=== PATIENT | male | born 1995 | race Hispanic/Latino ===

== ENCOUNTER 2023-11-24 16:18 | Emergency (ER) | payer OTHER ==
[2023-11-24 17:14] LABS: SARS-CoV-2 Antigen CONTROL BLUE LINE VIS/BG OK; SARS-CoV-2 Antigen Rapid Res Negative (Negative)
[2023-11-24] MEDS ORDERED: ACETAMINOPHEN 500 MG TAB ONE (17:26)
[2023-11-24] MEDS ORDERED: BENZONATATE 100 MG CAP PO ONE (17:27)
--- NOTE | 2023-11-24 17:58 | EDPHYS ---
Physician Documentation [facility] Name: Joel Yoo Age: 28 yrs Sex: Male : 1995 Arrival Date: 11/24/2023 Time: 16:18 Bed 11 Private MD: ED Physician Kobi Chung HPI: 11/23 17:15 This 28 yrs old Male presents to ER via Ambulatory with complaints of Sore cp Throat, Cold Symptoms. 17:15 The patient presents with sore throat. The patient describes throat pain as constant, cp scratchy. Onset: The symptoms/episode began/occurred yesterday. Associated signs and symptoms: Pertinent positives: cough. 17:15 Severity of symptoms: in the emergency department the symptoms are unchanged, despite cp home interventions. Historical: - Allergies: 16:35 No Known Allergies; ll1 - Home Meds: 16:35 None [Active]; ll1 - PMHx: 16:35 None; ll1 - PSHx: 16:35 None; ll1 - Immunization history:: Adult Immunizations up to date. - Infectious Disease History:: Denies. - Social history:: Smoking status: Reported history of juuling and/or vaping. Patient denies any tobacco usage or history of. ROS: 17:20 Eyes: Negative for injury, pain, redness, and discharge, cp 17:20 Constitutional: Positive for chills, Negative for fever, 17:20 ENT: Positive for sore throat, nasal congestion, Negative for drainage from ear(s), ear pain, difficulty swallowing, difficulty handling secretions, 17:20 Cardiovascular: Negative for chest pain, palpitations, 17:20 Respiratory: Positive for cough, "sounds productive", 17:20 Abdomen/GI: Negative for vomiting, diarrhea, constipation, 17:20 Neuro: Positive for headache, 17:20 All other systems are negative, Exam: 17:25 Head/Face: Normocephalic, atraumatic. cp 17:25 Constitutional: The patient appears in no acute distress, alert, awake, non-toxic, well developed, well nourished, obese, 17:25 Eyes: Periorbital structures: appear normal, Conjunctiva: normal, no exudate, no cp injection, Sclera: no appreciated abnormality, Lids and lashes: appear normal, bilaterally, 17:25 ENT: External ear(s): are unremarkable, Ear canal(s): are normal, clear, TM's: dullness, bilaterally, Nose: is normal, Mouth: Lips: moist, Oral mucosa: moist, Posterior pharynx: Airway: no evidence of obstruction, patent, Tonsils: mild erythema, no exudates, erythema, that is mild, Voice: is normal, 17:25 Neck: Lymph nodes: no appreciated lymphadenopathy, 17:25 Chest/axilla: Inspection: normal, 17:25 Cardiovascular: Rate: normal, Rhythm: regular, 17:25 Respiratory: the patient does not display signs of respiratory distress, Respirations: normal, no use of accessory muscles, no retractions, labored breathing, is not present, Breath sounds: rhonchi, are not appreciated, stridor, is not appreciated, + upper airway congestion. 17:25 Abdomen/GI: Exam negative for discomfort, distension, guarding, Inspection: obese 17:25 Neuro: Orientation: to person, place \\T\\ time. Mentation: is normal, Motor: moves all fours, strength is normal, Vital Signs: 16:31 BP 120 / 82; Pulse 92; Resp 18; Temp 97.5; Pulse Ox 97% ; Weight 128.37 kg; Height 5 ll1 ft. 6 in. ; Pain 8/10; 16:31 Body Mass Index 45.68 (128.37 kg, 167.64 cm) ll1 16:31 Pain Scale: Adult ll1 MDM: 16:31 Medical Screening Exam initiated cp 17:56 Data reviewed: vital signs, nurses notes, lab test result(s), and as a result, I will cp discharge patient. 17:56 Differential diagnosis: group A strep tonsillitis, pharyngitis, tonsillitis, upper cp respiratory infection, uvulitis. I considered the following discharge prescriptions or medication management in the emergency department Medications were administered in the Emergency Department. See MAR. Counseling: I had a detailed discussion with the patient and/or guardian regarding the historical points, exam findings, and any diagnostic results supporting the discharge/admit diagnosis, lab results, to return to the emergency department if symptoms worsen or persist or if there are any questions or concerns that arise at home. 11/23 16:39 Order name: Strep cp 11/23 16:39 Order name: Influenza Screen (a \\T\\ B); Complete Time: 17:41 cp 11/23 16:39 Order name: SARS RAPID; Complete Time: 17:41 cp 11/23 17:18 Order name: Throat Culture EDMS Administered Medications: 17:30 Drug: Tessalon Perle PO 200 mg PO once Route: PO; cm10 18:10 Follow up: Response: No adverse reaction cm10 17:30 Drug: Acetaminophen PO 1000 mg PO once Route: PO; cm10 18:10 Follow up: Response: No adverse reaction cm10 Disposition Summary: 11/24/23 17:57 Discharge Ordered Notes: Location: Home cp Problem: new cp Symptoms: have improved cp Condition: Stable cp Diagnosis - Cough cp - Acute pharyngitis, unspecified cp Followup: cp - With: Private Physician - When: 2 - 3 days - Reason: Worsening of condition Discharge Instructions: - Discharge Summary Sheet cp - Pharyngitis cp - Sore Throat cp - Cool Mist Vaporizer cp - Cough, Adult cp Forms: - Medication Reconciliation Form cp - Antibiotic Education cp - Prescription Opioid Use cp - Patient Portal Instructions cp - Leadership Thank You Letter cp - Work release form cm10 Prescriptions: - Bromfed DM 2-30-10 mg/5 mL Oral syrup - administer 10 milliliter ORAL route every 4 to 6 hours as needed for cold cp symptoms; 240 milliliter; Refills: 0, Product Selection Permitted - Ibuprofen 800 mg Oral Tablet - take 1 tablet ORAL route every 8 hours As needed take with food; 30 tablet; cp Refills: 0, Product Selection Permitted Signatures: Dispatcher [employer] EDNC Kobi Woodruff PA PA cp Lewis, Lynsay, RN RN ll1 Sita Kessler RN RN cm10 Corrections: (The following items were deleted from the chart) 16:39 16:39 Group A Streptococcus Rapid Sc+BA.LAB.BRZ ordered. EDMS EDMS 16:39 16:39 Influenza Screen (A \\T\\ B)+BA.LAB.BRZ ordered. EDNC EDMS 16:39 16:39 SARS-COV-2 Antigen Rapid+I.LAB.BRZ ordered. EDNC EDMS 11/24 16:19 11/23 17:15 Onset: The symptoms/episode began/occurred 2 day(s) ago, cp cp 11/24 16:51 16:46 Constitutional: Positive for chills, Negative for fever, cp cp 16:51 16:46 Respiratory: Positive for cough, "sounds productive", cp cp 16:51 16:46 Cardiovascular: Negative for chest pain, palpitations, cp cp 16:51 16:46 Abdomen/GI: Negative for vomiting, diarrhea, constipation, cp cp 16:51 16:46 ENT: Positive for sore throat, nasal congestion, Negative for drainage from cp ear(s), ear pain, difficulty swallowing, difficulty handling secretions, cp 16: 16:46 Eyes: Negative for injury, pain, redness, and discharge, cp cp 16:51 16:46 Neuro: Positive for headache, cp cp 16:51 16:46 All other systems are negative, cp cp
--- NOTE | 2023-11-24 17:58 | ER ---
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 Coronavirus screen: Client denies travel out of the [place] in the last 14 days. congestion, cough unrelated to allergies, fatigue, sore throat, Client presents with at least one sign or symptom that may indicate coronavirus-19. Standard/surgical mask placed on the client. Ebola Screen: Patient denies travel to an Ebola-affected area in the 21 days before illness onset. Initial Sepsis Screen: Does the patient meet any 2 criteria? No. Patient's initial sepsis screen is negative. Does the patient have a suspected source of infection? No. Patient's initial sepsis screen is negative. Risk Assessment: Do you want to hurt yourself or someone else? Patient reports no desire to harm self or others. Onset of symptoms was November 23, 2023. 16:31 Method Of Arrival: Ambulatory ll1 16:31 Acuity: JUANITA 4 ll1 Triage Assessment: 16:38 General: Appears uncomfortable, Behavior is calm, cooperative, appropriate for age. ll1 Pain: Complains of pain in head Pain currently is 7 out of 10 on a pain scale. Quality of pain is described as aching. EENT: Reports nasal congestion pain when swallowing. Neuro: Reports headache weakness. Respiratory: Reports cough that is. Historical: - Allergies: 16:35 No Known Allergies; ll1 - Home Meds: 16:35 None [Active]; ll1 - PMHx: 16:35 None; ll1 - PSHx: 16:35 None; ll1 - Immunization history:: Adult Immunizations up to date. - Infectious Disease History:: Denies. - Social history:: Smoking status: Reported history of juuling and/or vaping. Patient denies any tobacco usage or history of. Screenin:54 [facility] ED Fall Risk Assessment (Adult) History of falling in the last 3 months, cm10 including since admission No falls in past 3 months (0 pts) Confusion or Disorientation No (0 pts) Intoxicated or Sedated No (0 pts) Impaired Gait No (0 pts) Mobility Assist Device Used No (0 pt) Altered Elimination No (0 pt) Score/Fall Risk Level 0 - 2 = Low Risk Oriented to surroundings, Maintained a safe environment, Hourly rounding (assess needs \T\ fall precautionary measures) done. Abuse screen: Denies threats or abuse. Denies injuries from another. Nutritional screening: No deficits noted. Tuberculosis screening: No symptoms or risk factors identified. Assessment: 16:54 General: Appears in no apparent distress. comfortable, Behavior is calm, cooperative. mb9 Neuro: No deficits noted. Level of Consciousness is awake, alert, obeys commands, Oriented to person, place, time, situation, Appropriate for age. Respiratory: Airway is patent Respiratory effort is even, unlabored, Respiratory pattern is regular, symmetrical, 18:11 EENT: Throat is reddened. cm10 Vital Signs: 16:31 BP 120 / 82; Pulse 92; Resp 18; Temp 97.5; Pulse Ox 97% ; Weight 128.37 kg; Height 5 ll1 ft. 6 in. ; Pain 8/10; 16:31 Body Mass Index 45.68 (128.37 kg, 167.64 cm) ll1 16:31 Pain Scale: Adult ll1 ED Course: 16:25 Patient arrived in ED. ra3 16:30 Kobi Woodruff PA is PHCP. cp 16:30 Kobi Chung MD is Attending Physician. cp 16:30 Arm band placed on. ll1 16:35 Triage completed. ll1 16:36 Patient placed in an exam room, on a stretcher. ll1 16:37 Shila Hernandez, RN is Primary Nurse. mb9 16:54 SARS RAPID Sent. mb9 16:54 Influenza Screen (a \T\ B) Sent. mb9 16:54 COVID swab sent to lab. Flu and/or RSV swab sent to lab. Strep swab sent to lab. mb9 16:55 Primary Nurse role handed off by Shila Hernandez, RN cm10 16:55 Sita Kessler, JABARI is Primary Nurse. cm10 16:55 Patient has correct armband on for positive identification. Bed in low position. Call cm10 light in reach. Provided Education on: ER process and procedures.. Cardiac monitoring not applicable on this patient. 18:11 No provider procedures requiring assistance completed. Patient did not have IV access cm10 during this emergency room visit. Administered Medications: 17:30 Drug: Tessalon Perle PO 200 mg PO once Route: PO; cm10 18:10 Follow up: Response: No adverse reaction cm10 17:30 Drug: Acetaminophen PO 1000 mg PO once Route: PO; cm10 18:10 Follow up: Response: No adverse reaction cm10 Medication: 16:54 VIS not applicable for this client. cm10 Outcome: 17:57 Discharge ordered by MD. cp 18:11 Discharged to home ambulatory, with family, cm10 18:11 Condition: good 18:11 Discharge instructions given to patient, Instructed on discharge instructions, follow up and referral plans. medication usage, Demonstrated understanding of instructions, follow-up care, medications, Prescriptions given X 2, 18:12 Patient left the ED. cm10 Signatures: Kobi Woodruff PA PA cp Lewis, Lynsay RN RN ll1 Shila Hernandez, RN RN mb9 Sita Kessler RN RN cm10 Merissa Peralta ra3
[2023-11-24 20:57] VITALS: BP 120/82; TEMP 97.5; O2SAT 97
== END 2023-11-24 18:12 | disposition home or self-care (01) ==
LOC: ER 16:18
DX: R05.9 Cough, unspecified (principal); J02.9 Acute pharyngitis, unspecified; Z11.52 Encounter for screening for COVID-19
CPT/HCPCS: 36415; 87070; 87081; 87804; 87811; 99283